=== PATIENT | male | born 1970 | race Caucasian/White ===

== ENCOUNTER 2019-03-23 11:16 | Emergency (ER) | payer BC ==
[2019-03-23 11:24] VITALS: BP 153/92; PULSE 99; TEMP 97.5; BMI 34.2
--- NOTE | 2019-03-23 11:40 | PDOC ---
History of Present Illness - General Chief Complaint: Injury Stated Complaint: LT. SHOULDER PAIN Time Seen by Provider: 03/23/19 11:28 - History of Present Illness Initial Comments: 03/23/19 11:38 48-year-old male without comorbidities presents for evaluation of left shoulder pain. He states he was cutting down a tree in his yard when a branch fell onto his left shoulder. Past History - Past Medical History Allergies/Adverse Reactions: Allergies Allergy/AdvReac Type Severity Reaction Status Date / Time No Known Allergies Allergy Verified 03/23/19 11:22 Home Medications: Ambulatory Orders NK [No Known Home Medication] 03/23/19 COPD: No HTN: Yes - Immunization History Immunization Up to Date: Yes - Suicide/Smoking/Psychosocial Hx Smoking Status: Yes (QUIT 1999) Smoking History: Never smoked Have you smoked in the past 12 months: No Number of Cigarettes Smoked Daily: 0 Cigars Per Day: 0 Hx Alcohol Use: No Drug/Substance Use Hx: No Substance Use Type: None Review of Systems - Review of Systems Musculoskeletal: Yes: Joint Pain *Physical Exam - Vital Signs Last Vital Signs Temp Pulse Resp BP Pulse Ox 97.5 F L 99 H 17 153/92 98 03/23/19 11:22 03/23/19 11:22 03/23/19 11:22 03/23/19 11:22 03/23/19 11:22 - Physical Exam Comments: 03/23/19 11:39 Left shoulder skin color and temperature are normal. There are no abrasions. There is full range of motion with pain at terminal abduction and external rotation and internal rotation and adduction. 4+ out of 5 super spinatus isolation 3 out of 5 internal rotation and external rotation. Most likely because of pain. He is unable to tolerate impingement maneuvers. He is tenderness is greatest at the anterior joint line of the shoulder. No gross sensorimotor deficits. Is neurovascularly intact. ED Treatment Course - RADIOLOGY Radiology Studies Ordered: Category Date Time Status SHOULDER-LEFT [RAD] Stat Radiology 03/23/19 11:31 Ordered Medical Decision Making - Medical Decision Making 03/23/19 11:51 X-rays of the left shoulder show no evidence of fracture trauma or destructive process. The left shoulder contusion follow-up with orthopedic *DC/Admit/Observation/Transfer Diagnosis at time of Disposition: Contusion of left shoulder - Discharge Dispostion Disposition: HOME Condition at time of disposition: Stable Decision to Admit order: No - Referrals Referrals: John Paul Coronado DO [Staff Physician] - - Patient Instructions Printed Discharge Instructions: Contusion Additional Instructions: Return to the emergency room for worsening symptoms. Please follow-up with orthopedic surgery in 1-2 days for further evaluation and your shoulder pain. Do not put your arm in a sling. Please perform pendulum exercises Schon T when the emergency room multiple times a day to prevent stiffness. Tylenol Motrin as directed for pain. - Post Discharge Activity
== END 2019-03-23 12:05 | disposition home or self-care (01) ==
LOC: JERFT 11:16
DX: S40.012A Contusion of left shoulder, initial encounter (principal); W20.8XXA Other cause of strike by thrown, projected or falling object, initial encounter; Y93.H2 Activity, gardening and landscaping; Y92.017 Garden or yard in single-family (private) house as the place of occurrence of the external cause; Y99.8 Other external cause status
CPT/HCPCS: 73030-TC-LT-FY; 99281-25